=== PATIENT | male | born 2000 | race Native Hawaiian/Other Pacific Islander ===

== ENCOUNTER 2023-10-02 20:33 | Emergency (ER) | payer MEDICAID, SELFPAY ==
[2023-10-02 20:44] VITALS: BP 137/81; PULSE 70; RESP 16; TEMP 37.1; O2SAT 97; BMI 22.6
--- NOTE | 2023-10-02 21:44 | ED.GENADULT ---
HPI - General Adult General Chief complaint: Unspecified Complaint, Adult Stated complaint: scratch from a dog on left leg Time Seen by Provider: 10/02/23 21:22 History of Present Illness HPI narrative: This 23-year-old male comes in with concern that he may have infection in a scrape that he has on his left leg. He injured his left leg a couple weeks ago. It is almost completely healed now at this time and by his report the injury was not a full-thickness wound but rather a abrasion on his left lower extremity. He states that there was a scab on the wound about a week ago and he picked the scab off and there was a little bit of blood when this occurred. That same day he encountered a puppy at a home nearby. The puppy was behaving normally and came up and licked the wound. Since then he has been reading on the Internet and [employer] report on rabies and he is very worried that he would get rabies. 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 The dog had not had vaccinations yet cause it was still a puppy but a day or 2 after this event the puppy has had his initial vaccinations but this did not include a rabies vaccination yet as that occurs I believe at 1 year of age. Related Data Allergies Allergy/AdvReac Type Severity Reaction Status Date / Time No Known Drug Allergies Allergy Verified 10/02/23 20:48 Review of Systems Status of ROS: Reports: 10 or more systems reviewed and unremarkable except as noted in History and below Narrative: Constitutional: No fevers, no weight gain or loss. Eyes: No discharge. No vision changes. HENT: No congestion, no sore throat, no ear pain. Cardiovascular: No chest pain, no palpitations. Respiratory: No shortness of breath, no wheezes, no cough. Gastrointestinal: No abdominal pain, no vomiting, no diarrhea. Genitourinary: No dysuria, no hematuria. Musculoskeletal: Normal range of motion. Skin: No rashes, no pruritis. Neurological: No dizziness, weakness, sensory change, speech change. Endo/Heme/Allergies: No bruising or bleeding. No polydipsia. Pysch: no suicidality, no anxiety, no insomnia. All other systems reviewed and are negative. Exam Narrative: Exam Narrative: Constitutional: Well-developed, well-nourished, no acute distress. HEENT: Normocephalic, atraumatic. Neck: Normal range of motion. Nontender. Supple. Heart: Regular. No murmurs. Normal rate. Intact distal pulses. Lungs: Clear to auscultation. No chest discomfort. No wheezes, rhonchi, or rales. Abdomen: Normal bowel sounds. Nontender. No rebound tenderness. Genitalia: Deferred. Back: No midline tenderness. Normal range of motion. Extremities: Normal range of motion. The patient has some slight discoloration of skin on his left blanca of the lower leg from a wound that is completely healed. Skin: Intact. No rash. Warm. No erythema or pallor. Neurologic: No altered sensation. No weakness. Alert and oriented. Psychiatric: No suicidality. No anxiety or depression. No insomnia. Nursing notes and vitals signs are reviewed. Const: Vital Signs, click to edit/add: Vital Signs - 24 hr 10/02/23 20:44 Temperature 98.8 F Pulse Rate [Left P ulse Oximeter] 70 Respiratory Rate 16 Blood Pressure [Ri ght Upper Arm] 137/81 Pulse Oximetry 97 Oxygen Delivery Me thod Room Air Course Vital Signs Vital signs: Initial Vital Signs Temperature 98.8 F 10/02/23 20:44 Temperature Source Temporal Artery Scan 10/02/23 20:44 Pulse Rate 70 10/02/23 20:44 Pulse Rhythm Regular 10/02/23 20:44 Respiratory Rate 16 10/02/23 20:44 Blood Pressure 137/81 10/02/23 20:44 Blood Pressure Mean 99 10/02/23 20:44 Blood Pressure Position Sitting 10/02/23 20:44 Pulse Oximetry 97 10/02/23 20:44 Oxygen Delivery Method Room Air 10/02/23 20:44 Vital Signs Temperature 98.8 F 10/02/23 20:44 Pulse Rate 70 10/02/23 20:44 Respiratory Rate 16 10/02/23 20:44 Blood Pressure 137/81 10/02/23 20:44 Pulse Oximetry 97 10/02/23 20:44 Oxygen Delivery Method Room Air 10/02/23 20:44 Temperature 98.8 F 10/02/23 20:44 Pulse Rate 70 10/02/23 20:44 Respiratory Rate 16 10/02/23 20:44 Blood Pressure 137/81 10/02/23 20:44 Pulse Oximetry 97 10/02/23 20:44 Oxygen Delivery Method Room Air 10/02/23 20:44 Medical Decision Making MDM Narrative Medical decision making narrative: This patient has developed fair amount of anxiety about reading Internet and looking at TV clips about rabies. He had a superficial abrasion on his left leg that a puppy licked about a week ago. There was no penetrating injury and no exposures suspicious for infection. Currently he is not showing any sign of malaise or infection. I gave reassurance is to the patient that there is extremely minimal or actually no risk for rabies infection. Additionally he is not showing any sign of infection from any kind of pathogen, rather his wound is completely healed except for some discoloration of the skin at takes a little time to recover. He is okay to be discharged home. Discharge Plan Discharge Clinical Impression: Feared condition not demonstrated Patient Disposition: Home, Self-Care Condition: Stable Additional Instructions: Continue current plans. Follow up with MD or return if worsening. Stand Alone Forms: [employer] Info Instructions
== END 2023-10-02 22:15 | disposition home or self-care (01) ==
LOC: ED 22:08
PROVIDERS: Emergency Provider Emergency Medicine Emergency Medical Services
DX: S80.812A Abrasion, left lower leg, initial encounter (principal); W54.8XXA Other contact with dog, initial encounter
CPT/HCPCS: 99283; 99284